=== PATIENT | male | born 1960 | race American Indian/Alaskan Native ===

== ENCOUNTER 2017-06-03 11:06 | Emergency (ER) | payer MEDICARE ==
--- NOTE | 2017-06-03 14:20 | Emergency Department Report ---
Blank Doc - Documentation Documentation: She has a 57-year-old male past history of gout who presents with weakness. Patient has been having staring spells since also has been having some slight nausea. He states that he is called for his and has been "out of it." Yesterday H and cystocele and better while workup patient for I and abnormality and for presyncopal workup if labs are fine patient can go home.
[2017-06-03 15:09] LABS: Basophils % (Auto) 0.5 % (0.0-1.8); Eosinophils # (Auto) 0.2 K/mm3 (0.0-0.4); Eosinophils % (Auto) 2.4 % (0.0-4.3); Hematocrit 39.3 % (35.5-45.6); Hemoglobin 12.7 gm/dl (11.8-15.2); Lymphocytes # (Auto) 1.1 K/mm3 (1.2-5.4); Lymphocytes % (Auto) 14.6 % (13.4-35.0); Mean Corpuscular HGB Conc 32 % (32-34); Mean Corpuscular Volume 78 fl (84-94); Monocytes # (Auto) 0.8 K/mm3 (0.0-0.8); Monocytes % (Auto) 10.8 % (0.0-7.3); Platelet Count 313 K/mm3 (140-440); Red Blood Count 5.05 M/mm3 (3.65-5.03)
[2017-06-03 15:19] LABS: Mean Corpuscular Hemoglobin 25 pg (28-32)
--- NOTE | 2017-06-03 15:24 | XRay Report ---
FINAL REPORT EXAM: XR CHEST ROUTINE 2V HISTORY: syncope TECHNIQUE: Frontal and lateral views of the chest. PRIORS: None currently available. FINDINGS: Cardiac silhouette is within normal limits. Aortic calcifications. There is no effusion. There is no pneumothorax. There is no consolidation. Linear density in the right midlung may represent scarring, discoid atelectasis, or infiltrate. There are no suspicious osseous lesions. IMPRESSION: Nonspecific linear opacity in the right midlung. Differential diagnosis includes scarring, discoid atelectasis or possible infiltrate.
[2017-06-03 15:32] LABS: Alanine Aminotransferase 16 units/L (7-56); BUN/Creatinine Ratio 12; Blood Urea Nitrogen 15 mg/dL (9-20); Calcium 8.7 mg/dL (8.4-10.2); Hemolysis Index 4
--- NOTE | 2017-06-03 15:48 | Emergency Department Report ---
ED General Adult HPI - General Chief complaint: Extremity Problem,Nontraumatic Stated complaint: FLU LIKE SYMPTOMS Time Seen by Provider: 06/03/17 14:37 Source: patient Mode of arrival: Ambulatory Limitations: No Limitations - Related Data Home Medications Medication Instructions Recorded Confirmed Last Taken Carvedilol [Coreg] 25 mg PO BID 08/21/13 08/21/13 08/30/13 08:00 25 MG Esomeprazole Magnesium [NexIUM] 40 mg PO QDAY 08/21/13 08/21/13 08/29/13 40 MG Furosemide [Lasix] 40 mg PO 3XW 08/21/13 08/21/13 08/28/13 40 MG Ibuprofen 800 mg PO PRN PRN 08/21/13 08/21/13 08/22/13 800 mg Olmesartan/Hydrochlorothiazide 1 tab PO QDAY 08/21/13 08/21/13 08/30/13 08:00 [Benicar HCT 40-12.5 mg] 1 TAB Potassium 10 meq PO QDAY 08/21/13 08/21/13 08/28/13 10 MEQ Simvastatin 40 mg PO QDAY 08/21/13 08/21/13 08/29/13 40 MG amLODIPine [Norvasc] 5 mg PO DAILY 08/21/13 08/21/13 08/30/13 08:00 5 MG metFORMIN [Glucophage] 500 mg PO BID 08/21/13 08/21/13 08/29/13 500 MG Previous Rx's Medication Instructions Recorded Last Taken Type HYDROcodone/APAP 5-325 [[place] 1 each PO Q6HR PRN #20 tablet 08/30/13 Unknown Rx 5-325 mg TAB] HYDROcodone/ACETAMINOPHEN [[place] 1 each PO Q6H PRN #14 tablet 08/13/14 Unknown Rx 7.5-325 mg TAB] Ondansetron [Zofran] 4 mg PO Q6HR PRN #8 tablet 08/13/14 Unknown Rx Fluticasone [Flonase] 1 spray NS QDAY #1 bottle 06/03/17 Unknown Rx predniSONE [Deltasone] 50 mg PO QDAY #5 tab 06/03/17 Unknown Rx Allergies Allergy/AdvReac Type Severity Reaction Status Date / Time allopurinol AdvReac Itching Verified 08/21/13 15:40 colchicine AdvReac Itching Verified 08/21/13 15:40 indomethacin [From Indocin] AdvReac Itching Verified 08/21/13 15:40 indomethacin sodium AdvReac Itching Verified 08/21/13 15:40 [From Indocin] ED Review of Systems ROS: Stated complaint: FLU LIKE SYMPTOMS Other details as noted in HPI Comment: All other systems reviewed and negative ENT: congestion (SINUS) Musculoskeletal: other (R FOOT PAIN) ED Past Medical Hx - Past Medical History Hx Hypertension: Yes (1995 took coreg, norvasc, benicar) Hx Congestive Heart Failure: Yes (2009) Hx Diabetes: Yes (1995) Hx Renal Disease: Yes (acute renal failure, resolved) Hx Sickle Cell Disease: No Additional medical history: Brain aneurysm with clipping - Surgical History Hx Pacemaker: No Hx Internal Defibrillator: No Hx Appendectomy: Yes (1976) - Social History Smoking Status: Never Smoker Substance Use Type: None - Medications Home Medications: Home Medications Medication Instructions Recorded Confirmed Last Taken Type Carvedilol [Coreg] 25 mg PO BID 08/21/13 08/21/13 08/30/13 08:00 History 25 MG Esomeprazole Magnesium [NexIUM] 40 mg PO QDAY 08/21/13 08/21/13 08/29/13 History 40 MG Furosemide [Lasix] 40 mg PO 3XW 08/21/13 08/21/13 08/28/13 History 40 MG Ibuprofen 800 mg PO PRN PRN 08/21/13 08/21/13 08/22/13 History 800 mg Olmesartan/Hydrochlorothiazide 1 tab PO QDAY 08/21/13 08/21/13 08/30/13 08:00 History [Benicar HCT 40-12.5 mg] 1 TAB Potassium 10 meq PO QDAY 08/21/13 08/21/13 08/28/13 History 10 MEQ Simvastatin 40 mg PO QDAY 08/21/13 08/21/13 08/29/13 History 40 MG amLODIPine [Norvasc] 5 mg PO DAILY 08/21/13 08/21/13 08/30/13 08:00 History 5 MG metFORMIN [Glucophage] 500 mg PO BID 08/21/13 08/21/13 08/29/13 History 500 MG HYDROcodone/APAP 5-325 [[place] 1 each PO Q6HR PRN #20 tablet 08/30/13 Unknown Rx 5-325 mg TAB] HYDROcodone/ACETAMINOPHEN [[place] 1 each PO Q6H PRN #14 tablet 08/13/14 Unknown Rx 7.5-325 mg TAB] Ondansetron [Zofran] 4 mg PO Q6HR PRN #8 tablet 08/13/14 Unknown Rx Fluticasone [Flonase] 1 spray NS QDAY #1 bottle 06/03/17 Unknown Rx predniSONE [Deltasone] 50 mg PO QDAY #5 tab 06/03/17 Unknown Rx ED Physical Exam - General Limitations: No Limitations General appearance: alert - Head Head exam: Present: atraumatic - Eye Eye exam: Present: normal appearance, PERRL - ENT ENT exam: Present: mucous membranes moist - Neck Neck exam: Present: normal inspection - Respiratory Respiratory exam: Present: normal lung sounds bilaterally. Absent: respiratory distress, wheezes, rales, rhonchi, stridor - Cardiovascular Cardiovascular Exam: Present: regular rate - GI/Abdominal GI/Abdominal exam: Present: soft - Rectal Rectal exam: Present: deferred - Extremities Exam Extremities exam: Present: normal inspection, full ROM, tenderness (R FOOT) - Back Exam Back exam: Present: normal inspection - Neurological Exam Neurological exam: Present: alert, oriented X3, normal gait - Psychiatric Psychiatric exam: Present: normal affect, normal mood - Skin Skin exam: Present: warm, dry, intact ED Course Vital Signs 06/03/17 06/03/17 06/03/17 11:17 11:21 16:49 Temperature 99.7 F H Pulse Rate 83 Respiratory 16 16 Rate Blood Pressure 102/67 [Left] O2 Sat by Pulse 94 Oximetry 06/03/17 17:17 Temperature Pulse Rate 80 Respiratory 20 Rate Blood Pressure 126/85 [Left] O2 Sat by Pulse 95 Oximetry - Reevaluation(s) Reevaluation #1: 06/03/17 18:47 She comes to the emergency room today with his . Patient was screened by Dr. gabriel. He complained of right lower extremity/foot pain with Dr. Arias. Upon me going into the room and examining the foot the patient became upset because he said that that is only one reason why he is here. He states that he has had upper respiratory signs and symptoms such as sinus congestion took one his throat and cough over the past few days. Patient seems agitated. is at the bedside and fussing of the patient because he doesn't drink enough water. Patient is morbidly obese with a extensive past medical history. He does follow with Dr. Reyes. Labs noted. Twelve-lead EKG noted. Troponin negative. Chest x-ray noted. UA noted. Patient medicated for his gout flare with a uric acid is elevated. Patient requesting steroid injection because of his numerous allergies this is all the works. Discussed with patient the impact that would have on his diabetes. Patient states they will monitor his blood sugar levels and controlled with diet. Discussed with patient need to follow-up with Dr. Reyes this week given that Dr. Reyes knows him and his multiple medical problems he will be able to sort out various concerns. I told the patient to make sure that Dr. Reyes obtains a copy of this record and can see his findings such as his chest x-ray. On discharge vital signs are stable. Patient is afebrile. He is taking by mouth. An ambulated in the unit. He and his verbalized understanding of discharge planning care ED Medical Decision Making - Lab Data Result diagrams: 06/03/17 14:54 06/03/17 14:54 - EKG Data EKG shows normal: sinus rhythm - Radiology Data Radiology results: report reviewed, image reviewed - Medical Decision Making SEE NOTE - Differential Diagnosis GOUT; URTI Critical care attestation.: If time is entered above; I have spent that time in minutes in the direct care of this critically ill patient, excluding procedure time. ED Disposition Clinical Impression: Gout, Sinusitis Disposition: DC-01 TO HOME OR SELFCARE Is pt being admited?: No Does the pt Need Aspirin: No Condition: Stable Instructions: Sinusitis (ED), Acute Gouty Arthritis (ED), Viral Syndrome (ED) Additional Instructions: Rest Hydrate with water Medications as ordered today Continue your home medications Motrin or Tylenol for pain or fever Continue your home ibuprofen Follow-up with Dr. Reyes this week. Make sure he knows that she was seen in the ER so that he component her records from the emergency room visit today Prescriptions: Fluticasone [Flonase] 1 spray NS QDAY #1 bottle predniSONE [Deltasone] 50 mg PO QDAY #5 tab Referrals: PRIMARY CAREMD [Primary Care Provider] - 3-5 Days Nighat REYES MD [Referring] - 3-5 Days Time of Disposition: 16:42
[2017-06-03 16:21] LABS: Bilirubin,Urine NEG (Negative); Blood,Urine NEG (Negative); Color,Urine Amber (Yellow); Hyaline Casts,Urine 2 /LPF; Mucus,Urine 3+ /HPF; Nitrite,Urine NEG (Negative)
[2017-06-03] MEDS ORDERED: DECADRON IM ONE (16:35)
[2017-06-03] MEDS ORDERED: NORCO 10/325 PO ONE (16:41)
[2017-06-03 17:17] VITALS: BP 126/85
== END 2017-06-03 17:17 | disposition home or self-care (01) ==
LOC: ED 11:06
DX: M10.9 Gout, unspecified (principal); J32.9 Chronic sinusitis, unspecified; I10 Essential (primary) hypertension; I50.9 Heart failure, unspecified; E11.9 Type 2 diabetes mellitus without complications; N17.9 Acute kidney failure, unspecified; Z94.9 Transplanted organ and tissue status, unspecified; Z88.8 Allergy status to other drugs, medicaments and biological substances
CPT/HCPCS: 36415; 71046; 80053; 81001; 84484; 84550; 85025; 93005; 93010; 96372; 99284; J1100; J2920